=== PATIENT | male | born 1960 | race Caucasian/White ===

== ENCOUNTER 2024-04-09 07:33 | Emergency (ER) | payer OTHER ==
[~2024-04-09] VITALS: Ht 195.5 cm; Wt 117.5 kg
[~2024-04-09 07:33] MED LIST: PROTONIX40 MG PO; TOPROL XL50 MG PO
[2024-04-09 07:38] VITALS: BP 167/63
[2024-04-09 08:07] LABS: BASO % 0.4 % (0.0-1.0); EOS # 0.2 10*3/uL (0.0-0.4); EOS % 1.7 % (1.0-4.0); HEMATOCRIT 46.2 % (42.0-52.0); LYMPH # 3.1 10*3/uL (1.3-4.4); LYMPH % 31.6 % (27.0-41.0); MEAN CELL VOLUME 89.7 fl (80.0-94.0); MEAN CORPUSCULAR HGB 28.9 pg (27.0-31.0); MEAN CORPUSCULAR HGB CONC 32.3 g/dl (33.0-37.0); MEAN PLATELET VOLUME 10.8 fl (9.6-12.3); MONO # 0.9 10*3/uL (0.1-1.0); MONO % 8.8 % (3.0-9.0); NEUT # 5.5 10*3/uL (2.3-7.9); NEUT % 56.8 % (47.0-73.0); PLATELET COUNT AUTOMATED 213 10*3/uL (130-400); RED BLOOD COUNT 5.15 10*6/uL (4.50-5.90); RED CELL DISTRI WIDTH 13.1 % (0-14.5); WHITE BLOOD COUNT 9.7 10*3/uL (4.8-10.8)
[2024-04-09 08:16] LABS: ACT PARTIAL THROMBO TIME 25.9 SECONDS (20.0-32.1)
[2024-04-09 08:29] LABS: TOTAL PROTEIN 6.7 gm/dL (6.0-8.0)
[2024-04-09] MEDS ORDERED: SODIUM CHLORIDE 0.9% 1,000 ML IV ONE (09:05)
[2024-04-09 09:47] LABS: BILIRUBIN Negative (Negative); BLOOD Negative (Negative); CLARITY Cloudy (Clear); COLOR Yellow (Yellow); GLUCOSE Negative (Negative); KETONE Negative (Negative); LEUKO ESTERASE Negative (Negative); NITRITE Negative (Negative); UROBILINOGEN 0.2 E.U./dl (0.0-1.0)
== END 2024-04-09 12:32 | disposition home or self-care (01) ==
LOC: ED 07:33
PROVIDERS: Internal Medicine
DX: T85.190A Other mechanical complication of implanted electronic neurostimulator of brain electrode (lead), initial encounter (principal); R07.89 Other chest pain; M79.602 Pain in left arm; M79.601 Pain in right arm; I10 Essential (primary) hypertension; E11.9 Type 2 diabetes mellitus without complications; Y75.8 Miscellaneous neurological devices associated with adverse incidents, not elsewhere classified; Y92.009 Unspecified place in unspecified non-institutional (private) residence as the place of occurrence of the external cause